=== PATIENT | male | born 1980 | race Caucasian/White ===

== ENCOUNTER → 2020-07-12 | Outpatient (CLI) | payer OTHER ==
[2020-07-12 15:08] LABS: BUN/CREATININE RATIO 28 (0-10)
== END ==
LOC: LAB 14:28
PROVIDERS: Nurse Practitioner Adult Health
DX: Q22.0 Pulmonary valve atresia (principal); Z95.4 Presence of other heart-valve replacement
CPT/HCPCS: 36415; 80048; 83735; 83880

== ENCOUNTER → 2020-08-30 | Outpatient (CLI) | payer OTHER ==
[2020-08-30 16:22] LABS: BUN/CREATININE RATIO 29 (0-10)
== END ==
LOC: LAB 14:17
PROVIDERS: Family Medicine
DX: E03.9 Hypothyroidism, unspecified (principal); I27.81 Cor pulmonale (chronic); M10.9 Gout, unspecified; Q22.0 Pulmonary valve atresia; Z95.4 Presence of other heart-valve replacement
CPT/HCPCS: 36415; 80053; 80061; 83036; 83735; 83880; 84443; 84550

== ENCOUNTER → 2020-10-30 | Outpatient (CLI) | payer OTHER ==
[2020-10-30 17:07] LABS: BUN/CREATININE RATIO 26 (0-10)
== END ==
LOC: LAB 15:58
PROVIDERS: Nurse Practitioner Adult Health
DX: Q22.0 Pulmonary valve atresia (principal)
CPT/HCPCS: 80048; 83735; 83880

== ENCOUNTER → 2021-03-07 | Outpatient (CLI) | payer OTHER | LOC: SLEEP 21:30 | DX: G47.33 Obstructive sleep apnea (adult) (pediatric) (principal) | CPT/HCPCS: 95811 ==